=== PATIENT | male | born 1935 | race Caucasian/White ===

== ENCOUNTER 2016-03-27 07:14 | Outpatient (CLI) | payer MEDICARE, BC ==
[~2016-03-27] VITALS: Ht 195.6 cm; Wt 113.6 kg
[~2016-03-27 07:14] MED LIST: /DULO30CA OR; /TAMS4CA PO; ALEVE PM OR; ALFU10TA PO; ALLO100T PO; ASPI81TA45 OR; ASPI81TA85 PO; ATEN50TA2 OR; B COCAP5 OR; BACT800T5 PO; COLA100C2 OR; DULO30CA PO; FINA5TAB2 PO; FOLI1TAB86 PO; FOLI5INJ2 PO; GABA300C2 PO; GABA600T3 OR; LISI30TA3 OR; MELA1LIQ2 PO; METF500T4 OR; METH1INJ IM; METH2.5T PO; METH2.5TA PO; METO100T PO; METO100T3 PO; MEXI150C PO; PERC5TAB6 PO; QUET5TAB PO; SIMV20TA2 OR; SLOWTAB2 PO; TOPR100T PO; VITA-113 OR; VITA100072 PO; XARE10TA PO; immune globulin IV; stool softener OR
[2016-03-27] MEDS ORDERED: IMMUNE GLOBULIN 10% 40 GM in APPROPRIATE DILUENT 1 EA IV ONE (08:00)
== END 2016-03-27 10:10 | disposition home or self-care (01) ==
LOC: M INFU 07:14
PROVIDERS: ATTEND Psychiatry & Neurology Neurology
DX: G61.81 Chronic inflammatory demyelinating polyneuritis (principal)
CPT/HCPCS: 96365; 96366; J1568

== ENCOUNTER 2016-04-30 07:26 | Outpatient (CLI) | payer MEDICARE, BC ==
[~2016-04-30] VITALS: Ht 195.6 cm; Wt 113.6 kg
[~2016-04-30 07:26] MED LIST changes: +IMMUNE GLOBULIN 10% 40 GM in APPROPRIATE DILUENT 1 EA IV ONE
== END 2016-04-30 10:30 | disposition home or self-care (01) ==
LOC: M INFU 07:26
PROVIDERS: ATTEND Psychiatry & Neurology Neurology
DX: G61.81 Chronic inflammatory demyelinating polyneuritis (principal)
CPT/HCPCS: 96365; 96366; J1568

== ENCOUNTER 2016-05-28 07:10 | Outpatient (CLI) | payer MEDICARE, BC ==
[~2016-05-28] VITALS: Ht 195.6 cm; Wt 113.0 kg
== END 2016-05-28 10:30 | disposition home or self-care (01) ==
LOC: M INFU 07:10
PROVIDERS: ATTEND Psychiatry & Neurology Neurology
DX: G61.81 Chronic inflammatory demyelinating polyneuritis (principal)
CPT/HCPCS: 96365; 96366; J1568

== ENCOUNTER 2016-06-25 07:18 | Outpatient (CLI) | payer MEDICARE, BC ==
[~2016-06-25] VITALS: Ht 195.6 cm; Wt 113.6 kg
[~2016-06-25 07:18] MED LIST changes: -IMMUNE GLOBULIN 10% 40 GM in APPROPRIATE DILUENT 1 EA IV ONE
[2016-06-25] MEDS ORDERED: IMMUNE GLOBULIN 10% 40 GM in APPROPRIATE DILUENT 1 EA IV ONE (07:45)
[2016-06-26 14:19] LABS: PSA % FREE 14.4 % (.); PSA FREE 0.59 ng/mL; PSA TOTAL 4.1 ng/mL (0.0-4.0)
== END 2016-06-25 10:50 | disposition home or self-care (01) ==
LOC: M INFU 07:18
PROVIDERS: ATTEND Psychiatry & Neurology Neurology
DX: G61.81 Chronic inflammatory demyelinating polyneuritis (principal)
CPT/HCPCS: 36415; 84154; 96365; 96366; J1568

== ENCOUNTER → 2016-07-16 | Outpatient (CLI) | payer MEDICARE, BC ==
[2016-07-16 18:25] LABS: CALCIUM LEVEL 9.5 MG/DL (8.8-10.2); CREATININE FOR GFR 1.37 MG/DL (0.70-1.30); GLOMERULAR FILTRATION RATE 53.5 (>42); POTASSIUM SERUM 4.8 MEQ/L (3.5-5.1)
[2016-07-16 18:42] LABS: BASO % 0.4 % (0.0-1.0); EOS # 0.1 K/mm3 (0.0-0.50); EOS % 1.3 % (0.0-3.0); LARGE UNSTAINED CELL # 0.1 K/mm3 (0.0-0.4); LARGE UNSTAINED CELL % 1.6 % (0.0-4.0); LYMPH # 1.3 K/mm3 (1.5-4.5); MEAN CORPUSCULAR HEMOGLOBIN 33.6 pg (27.0-33.0); MEAN CORPUSCULAR HGB CONC 33.8 g/dl (32.0-36.5); MEAN CORPUSCULAR VOLUME 99.6 fl (80.0-96.0); MONO # 0.5 K/mm3 (0.0-0.8); MONO % 6.5 % (0.0-5.0); NEUTROPHILS # 6.2 K/mm3 (1.8-7.7); NEUTROPHILS % 74.2 % (36.0-66.0); PLATELET COUNT, AUTOMATED 238 k/mm3 (150-450); RED CELL DISTRIBUTION WIDTH 15.5 % (11.5-14.5); WHITE BLOOD COUNT 8.3 K/mm3 (4.0-10.0)
== END ==
LOC: M SMT 11:45
PROVIDERS: ATTEND Internal Medicine Cardiovascular Disease
DX: I50.42 Chronic combined systolic (congestive) and diastolic (congestive) heart failure (principal)

== ENCOUNTER 2016-07-23 07:27 | Outpatient (CLI) | payer MEDICARE, BC ==
[~2016-07-23] VITALS: Ht 195.6 cm; Wt 113.6 kg
[2016-07-23] MEDS ORDERED: IMMUNE GLOBULIN 10% 20 GM in APPROPRIATE DILUENT 1 EA IV ONE ×2 (08:00)
[2016-07-23] MEDS ORDERED: IMMUNE GLOBULIN 10% 40 GM in APPROPRIATE DILUENT 1 EA IV ONE (08:00)
== END 2016-07-23 10:20 | disposition home or self-care (01) ==
LOC: M INFU 07:27
PROVIDERS: ATTEND Psychiatry & Neurology Neurology
DX: G61.81 Chronic inflammatory demyelinating polyneuritis (principal)
CPT/HCPCS: 96365; 96366; J1568

== ENCOUNTER → 2016-07-24 | Outpatient (REF) | payer MEDICARE, BC | LOC: M SMT 16:43 | PROVIDERS: ATTEND Urology | DX: N40.1 Benign prostatic hyperplasia with lower urinary tract symptoms (principal) ==

== ENCOUNTER 2016-08-27 07:20 | Outpatient (CLI) | payer MEDICARE, BC ==
[~2016-08-27] VITALS: Ht 195.6 cm; Wt 113.6 kg
[2016-08-27] MEDS ORDERED: IMMUNE GLOBULIN 10% 20GM 200ML 40 GM in APPROPRIATE DILUENT 1 EA IV ONE (08:30)
== END 2016-08-27 11:15 | disposition home or self-care (01) ==
LOC: M INFU 07:20
PROVIDERS: ATTEND Psychiatry & Neurology Neurology
DX: G61.81 Chronic inflammatory demyelinating polyneuritis (principal); M10.9 Gout, unspecified; E11.9 Type 2 diabetes mellitus without complications; N40.0 Benign prostatic hyperplasia without lower urinary tract symptoms; Z87.891 Personal history of nicotine dependence; Z79.899 Other long term (current) drug therapy; Z79.84 Long term (current) use of oral hypoglycemic drugs; Z88.1 Allergy status to other antibiotic agents; Z95.0 Presence of cardiac pacemaker
CPT/HCPCS: 96365; 96366; J1569

== ENCOUNTER 2016-10-01 07:25 | Outpatient (CLI) | payer MEDICARE, BC ==
[~2016-10-01 07:25] MED LIST changes: +IMMUNE GLOBULIN 10% 20GM 200ML 40 GM in APPROPRIATE DILUENT 1 EA IV ONE; -METO100T PO; +METO100T5 PO; +PERC5TAB12 PO; -PERC5TAB6 PO
== END 2016-10-01 11:30 | disposition home or self-care (01) ==
LOC: M INFU 07:25
PROVIDERS: ATTEND Psychiatry & Neurology Neurology
DX: G61.81 Chronic inflammatory demyelinating polyneuritis (principal); Z79.899 Other long term (current) drug therapy; Z79.84 Long term (current) use of oral hypoglycemic drugs; Z88.1 Allergy status to other antibiotic agents; E78.5 Hyperlipidemia, unspecified; E07.9 Disorder of thyroid, unspecified; N40.1 Benign prostatic hyperplasia with lower urinary tract symptoms; E11.9 Type 2 diabetes mellitus without complications; Z87.39 Personal history of other diseases of the musculoskeletal system and connective tissue; Z72.0 Tobacco use
CPT/HCPCS: 96365; 96366; J1569

== ENCOUNTER 2016-10-29 07:24 | Outpatient (CLI) | payer MEDICARE, BC ==
[~2016-10-29] VITALS: Ht 195.6 cm; Wt 113.6 kg
[~2016-10-29 07:24] MED LIST changes: -IMMUNE GLOBULIN 10% 20GM 200ML 40 GM in APPROPRIATE DILUENT 1 EA IV ONE
[2016-10-29] MEDS ORDERED: IMMUNE GLOBULIN 10% 20GM 200ML 40 GM in APPROPRIATE DILUENT 1 EA IV ONE (07:45)
== END 2016-10-29 10:25 | disposition home or self-care (01) ==
LOC: M INFU 07:24
PROVIDERS: ATTEND Psychiatry & Neurology Neurology
DX: G61.81 Chronic inflammatory demyelinating polyneuritis (principal); I10 Essential (primary) hypertension; E78.00 Pure hypercholesterolemia, unspecified; E11.9 Type 2 diabetes mellitus without complications; R42 Dizziness and giddiness; M10.9 Gout, unspecified; N40.0 Benign prostatic hyperplasia without lower urinary tract symptoms; Z95.0 Presence of cardiac pacemaker; Z87.891 Personal history of nicotine dependence; Z79.84 Long term (current) use of oral hypoglycemic drugs; Z79.899 Other long term (current) drug therapy
CPT/HCPCS: 96365; 96366; J1569

== ENCOUNTER 2016-11-27 07:36 | Outpatient (CLI) | payer MEDICARE, BC ==
[~2016-11-27] VITALS: Ht 195.6 cm; Wt 113.6 kg
[2016-11-27] MEDS ORDERED: IMMUNE GLOBULIN 10% 20GM 200ML 40 GM in APPROPRIATE DILUENT 1 EA IV ONE (08:00)
== END 2016-11-27 10:40 | disposition home or self-care (01) ==
LOC: M INFU 07:36
PROVIDERS: ATTEND Psychiatry & Neurology Neurology
DX: G61.81 Chronic inflammatory demyelinating polyneuritis (principal); I10 Essential (primary) hypertension; E78.00 Pure hypercholesterolemia, unspecified; E11.9 Type 2 diabetes mellitus without complications; Z87.39 Personal history of other diseases of the musculoskeletal system and connective tissue; Z95.0 Presence of cardiac pacemaker; Z79.84 Long term (current) use of oral hypoglycemic drugs; Z79.899 Other long term (current) drug therapy; Z88.1 Allergy status to other antibiotic agents
CPT/HCPCS: 96365; 96366; J1569

== ENCOUNTER → 2016-11-28 | Outpatient (CLI) | payer MEDICARE, BC ==
--- NOTE | 2016-11-28 14:30 | REP ---
CT Head without contrast HISTORY: Cognitive impairment COMPARISON: None Areas of decreased attenuation are present in the periventricular white matter. This represents small-vessel ischemic disease. There is no intraparenchymal hemorrhage, acute infarct, mass or midline shift. The ventricular system and cortical sulci as well as subarachnoid space in the posterior fossa are dilated consistent with mild volume loss. There is no extra cerebral collection. There is no fracture. The visualized sinuses are clear. IMPRESSION: 1. Small vessel ischemic disease. 2. Mild volume loss. Signed by Mono Johnson MD 11/28/2016 02:22 P
== END ==
LOC: M RAD 13:25
PROVIDERS: ATTEND Psychiatry & Neurology Neurology
DX: G31.84 Mild cognitive impairment of uncertain or unknown etiology (principal)

== ENCOUNTER 2016-12-24 07:30 | Outpatient (CLI) | payer MEDICARE, BC ==
[~2016-12-24] VITALS: Ht 195.6 cm; Wt 113.6 kg
[2016-12-24] MEDS ORDERED: IMMUNE GLOBULIN 10% 20GM 200ML 40 GM in APPROPRIATE DILUENT 1 EA IV ONE (08:00)
== END 2016-12-24 10:25 | disposition home or self-care (01) ==
LOC: M INFU 07:30
PROVIDERS: ATTEND Psychiatry & Neurology Neurology
DX: G61.81 Chronic inflammatory demyelinating polyneuritis (principal); E11.9 Type 2 diabetes mellitus without complications; E78.5 Hyperlipidemia, unspecified; N40.0 Benign prostatic hyperplasia without lower urinary tract symptoms; Z79.84 Long term (current) use of oral hypoglycemic drugs; Z79.899 Other long term (current) drug therapy; Z88.1 Allergy status to other antibiotic agents; Z95.0 Presence of cardiac pacemaker
CPT/HCPCS: 96365; 96366; J1569

== ENCOUNTER 2017-02-25 07:31 | Outpatient (CLI) | payer MEDICARE, BC ==
[~2017-02-25] VITALS: Ht 193 cm; Wt 104.8 kg
[2017-02-25] MEDS ORDERED: IMMUNE GLOBULIN 10% 20GM 200ML 40 GM in APPROPRIATE DILUENT 1 EA IV ONE (08:00)
== END 2017-02-25 11:00 | disposition home or self-care (01) ==
LOC: M INFU 07:31
PROVIDERS: ATTEND Psychiatry & Neurology Neurology
DX: G61.81 Chronic inflammatory demyelinating polyneuritis (principal); I10 Essential (primary) hypertension; E78.00 Pure hypercholesterolemia, unspecified; E11.9 Type 2 diabetes mellitus without complications; M10.9 Gout, unspecified; Z95.0 Presence of cardiac pacemaker; Z87.891 Personal history of nicotine dependence; Z79.899 Other long term (current) drug therapy; Z88.1 Allergy status to other antibiotic agents
CPT/HCPCS: 96365; 96366; J1569

== ENCOUNTER → 2017-03-08 | Outpatient (CLI) | payer MEDICARE, BC ==
[2017-03-08 11:54] LABS: MEAN CORPUSCULAR HEMOGLOBIN 32.7 pg (27.0-33.0); MEAN CORPUSCULAR VOLUME 96.2 fl (80.0-96.0); PLATELET COUNT, AUTOMATED 201 10^3/uL (150-450); RED CELL DISTRIBUTION WIDTH 14.1 % (11.5-14.5); WHITE BLOOD COUNT 8.8 10^3/uL (4.0-10.0)
[2017-03-08 12:22] LABS: CALCIUM LEVEL 9.8 MG/DL (8.8-10.2); CREATININE FOR GFR 1.4 MG/DL (0.70-1.30)
== END ==
LOC: M SMT 10:29
PROVIDERS: ATTEND Internal Medicine Interventional Cardiology
DX: I47.2 Ventricular tachycardia (principal)

== ENCOUNTER 2017-03-26 07:41 | Outpatient (CLI) | payer MEDICARE, BC ==
[2017-03-26] MEDS: IMMUNE GLOBULIN 10% 20GM 200ML 40 GM in APPROPRIATE DILUENT 1 EA IV (08:03)
== END 2017-03-26 11:00 | disposition home or self-care (01) ==
LOC: M INFU 07:41
DX: G61.81 Chronic inflammatory demyelinating polyneuritis (principal)
CPT/HCPCS: 96365

== ENCOUNTER 2017-04-29 08:30 | Outpatient (CLI) | payer MEDICARE, BC ==
[2017-04-29] MEDS: IMMUNE GLOBULIN 10% 20GM 200ML 40 GM in APPROPRIATE DILUENT 1 EA IV (09:12)
[2017-04-29 10:06] LABS: ALBUMIN 3.4 GM/DL (3.2-5.2); ALBUMIN/GLOBULIN RATIO 1.13 (1.00-1.93); ALKALINE PHOSPHATASE 91 U/L (45-117); ALT/SGPT 11 U/L (12-78); ANION GAP 10 MEQ/L (8-16); AST/SGOT 17 U/L (7-37); BILIRUBIN,TOTAL 0.5 MG/DL (0.2-1.0); BLOOD UREA NITROGEN 20 MG/DL (7-18); CALCIUM LEVEL 9.2 MG/DL (8.8-10.2); CARBON DIOXIDE LEVEL 28 MEQ/L (21-32); CHLORIDE LEVEL 104 MEQ/L (98-107); CREATININE FOR GFR 1.36 MG/DL (0.70-1.30); GLOMERULAR FILTRATION RATE 53.8 (>42); GLUCOSE, FASTING 117 MG/DL (70-100); POTASSIUM SERUM 3.9 MEQ/L (3.5-5.1); SODIUM LEVEL 142 MEQ/L (136-145); TOTAL PROTEIN 6.4 GM/DL (6.4-8.2)
== END 2017-04-29 12:00 | disposition home or self-care (01) ==
LOC: M INFU 08:30
DX: G61.81 Chronic inflammatory demyelinating polyneuritis (principal); I47.2 Ventricular tachycardia; E78.2 Mixed hyperlipidemia; Z79.899 Other long term (current) drug therapy; Z88.2 Allergy status to sulfonamides
CPT/HCPCS: J1569

== ENCOUNTER 2017-05-27 07:36 | Outpatient (CLI) | payer MEDICARE, BC ==
[2017-05-27] MEDS: IMMUNE GLOBULIN 10% 20GM 200ML 40 GM in APPROPRIATE DILUENT 1 EA IV (08:09)
== END 2017-05-27 09:45 | disposition home or self-care (01) ==
LOC: M INFU 07:36
DX: G61.81 Chronic inflammatory demyelinating polyneuritis (principal); E11.9 Type 2 diabetes mellitus without complications; I10 Essential (primary) hypertension; E78.5 Hyperlipidemia, unspecified; Z79.899 Other long term (current) drug therapy; Z88.2 Allergy status to sulfonamides; Z88.1 Allergy status to other antibiotic agents; Z87.39 Personal history of other diseases of the musculoskeletal system and connective tissue; Z95.0 Presence of cardiac pacemaker; Z87.891 Personal history of nicotine dependence
CPT/HCPCS: J1569

== ENCOUNTER → 2017-06-17 | Outpatient (CLI) | payer MEDICARE, BC ==
[2017-06-17 18:11] LABS: ALBUMIN 3.5 GM/DL (3.2-5.2); ALBUMIN/GLOBULIN RATIO 1.09 (1.00-1.93); ALKALINE PHOSPHATASE 106 U/L (45-117); ALT/SGPT 47 U/L (12-78); ANION GAP 8 MEQ/L (8-16); AST/SGOT 31 U/L (7-37); BILIRUBIN,TOTAL 0.4 MG/DL (0.2-1.0); BLOOD UREA NITROGEN 34 MG/DL (7-18); CALCIUM LEVEL 9.2 MG/DL (8.8-10.2); CARBON DIOXIDE LEVEL 29 MEQ/L (21-32); CHLORIDE LEVEL 107 MEQ/L (98-107); CREATININE FOR GFR 1.77 MG/DL (0.70-1.30); GLOMERULAR FILTRATION RATE 39.7 (>42); GLUCOSE, FASTING 106 MG/DL (70-100); MAGNESIUM LEVEL 2.1 MG/DL (1.8-2.4); POTASSIUM SERUM 4.1 MEQ/L (3.5-5.1); SODIUM LEVEL 144 MEQ/L (136-145); TOTAL PROTEIN 6.7 GM/DL (6.4-8.2)
[2017-06-17 18:28] LABS: BASO # 0.1 10^3/uL (0.0-0.2); BASO % 0.6 % (0.0-1.0); EOS # 0.4 10^3/uL (0.0-0.50); EOS % 4.2 % (0.0-3.0); HEMATOCRIT 35.8 % (42.0-52.0); HEMOGLOBIN 11.6 g/dl (14.0-18.0); IMMATURE GRANULOCYTE % 0.6 % (0-3.0); LYMPH % 12.5 % (24.0-44.0); MEAN CORPUSCULAR HEMOGLOBIN 32.7 pg (27.0-33.0); MEAN CORPUSCULAR HGB CONC 32.4 g/dl (32.0-36.5); MEAN CORPUSCULAR VOLUME 100.8 fl (80.0-96.0); MONO # 0.6 10^3/uL (0.0-0.8); MONO % 7.5 % (0.0-5.0); NEUTROPHILS # 6.2 10^3/uL (1.8-7.7); NEUTROPHILS % 74.6 % (36.0-66.0); PLATELET COUNT, AUTOMATED 239 10^3/uL (150-450); RED BLOOD COUNT 3.55 10^6/uL (4.30-6.10); RED CELL DISTRIBUTION WIDTH 15.5 % (11.5-14.5); WHITE BLOOD COUNT 8.4 10^3/uL (4.0-10.0)
== END ==
LOC: M SMT 13:17
DX: I50.42 Chronic combined systolic (congestive) and diastolic (congestive) heart failure (principal); Z95.0 Presence of cardiac pacemaker
CPT/HCPCS: 83735

== ENCOUNTER 2017-06-27 07:59 | Outpatient (CLI) | payer MEDICARE, BC ==
[2017-06-27] MEDS: IMMUNE GLOBULIN 10% 20GM 200ML 40 GM in APPROPRIATE DILUENT 1 EA IV (08:05)
== END 2017-06-27 13:30 | disposition home or self-care (01) ==
LOC: M INFU 07:59
DX: G61.81 Chronic inflammatory demyelinating polyneuritis (principal); Z95.0 Presence of cardiac pacemaker; Z88.2 Allergy status to sulfonamides; Z79.84 Long term (current) use of oral hypoglycemic drugs; Z79.899 Other long term (current) drug therapy
CPT/HCPCS: J1569

== ENCOUNTER 2017-07-25 08:58 | Outpatient (CLI) | payer MEDICARE, BC ==
[2017-07-25] MEDS: IMMUNE GLOBULIN 10% 20GM 200ML 40 GM in APPROPRIATE DILUENT 1 EA IV (09:24)
== END 2017-07-25 13:00 | disposition home or self-care (01) ==
LOC: M INFU 08:58
DX: G61.81 Chronic inflammatory demyelinating polyneuritis (principal); Z79.899 Other long term (current) drug therapy; Z88.1 Allergy status to other antibiotic agents; Z87.39 Personal history of other diseases of the musculoskeletal system and connective tissue; Z87.891 Personal history of nicotine dependence; Z95.0 Presence of cardiac pacemaker
CPT/HCPCS: J1569

== ENCOUNTER 2017-08-29 08:03 | Outpatient (CLI) | payer MEDICARE, BC ==
[2017-08-29] MEDS: IMMUNE GLOBULIN 10% 20GM 200ML 60 GM in APPROPRIATE DILUENT 1 EA IV (09:14)
== END 2017-08-29 12:45 | disposition home or self-care (01) ==
LOC: M INFU 08:03
DX: G61.81 Chronic inflammatory demyelinating polyneuritis (principal); M10.9 Gout, unspecified; Z79.899 Other long term (current) drug therapy; Z88.8 Allergy status to other drugs, medicaments and biological substances; Z95.0 Presence of cardiac pacemaker; Z87.891 Personal history of nicotine dependence
CPT/HCPCS: J1569

== ENCOUNTER 2017-10-09 12:21 | Outpatient (CLI) | payer MEDICARE, BC ==
[2017-10-09] MEDS: IMMUNE GLOBULIN 10% 20GM 200ML 60 GM in APPROPRIATE DILUENT 1 EA IV (12:57)
== END 2017-10-09 16:40 | disposition home or self-care (01) ==
LOC: M INFU 12:21
DX: G61.81 Chronic inflammatory demyelinating polyneuritis (principal); E11.9 Type 2 diabetes mellitus without complications; I10 Essential (primary) hypertension; E78.00 Pure hypercholesterolemia, unspecified; Z79.899 Other long term (current) drug therapy; Z88.8 Allergy status to other drugs, medicaments and biological substances; Z87.891 Personal history of nicotine dependence; Z95.0 Presence of cardiac pacemaker; Z87.39 Personal history of other diseases of the musculoskeletal system and connective tissue
CPT/HCPCS: J1569

== ENCOUNTER 2017-11-06 12:25 | Outpatient (CLI) | payer MEDICARE, BC ==
[2017-11-06] MEDS: IMMUNE GLOBULIN 10% 20GM 200ML 60 GM in APPROPRIATE DILUENT 1 EA IV (13:05)
== END 2017-11-06 16:40 | disposition home or self-care (01) ==
LOC: M INFU 12:25
DX: G61.81 Chronic inflammatory demyelinating polyneuritis (principal); E11.9 Type 2 diabetes mellitus without complications; M10.9 Gout, unspecified; N42.9 Disorder of prostate, unspecified; Z79.84 Long term (current) use of oral hypoglycemic drugs; Z79.899 Other long term (current) drug therapy; Z88.8 Allergy status to other drugs, medicaments and biological substances; Z87.891 Personal history of nicotine dependence; Z95.0 Presence of cardiac pacemaker
CPT/HCPCS: J1569

== ENCOUNTER 2017-12-04 11:56 | Outpatient (CLI) | payer MEDICARE, BC ==
[2017-12-04] MEDS ORDERED: IMMUNE GLOBULIN 10% 20GM 200ML 20 GM in APPROPRIATE DILUENT 1 EA IV ×2 (12:15→13:00)
== END 2017-12-04 16:05 | disposition home or self-care (01) ==
LOC: M INFU 11:56
DX: G61.81 Chronic inflammatory demyelinating polyneuritis (principal); E78.5 Hyperlipidemia, unspecified; N40.0 Benign prostatic hyperplasia without lower urinary tract symptoms; Z79.899 Other long term (current) drug therapy; Z88.2 Allergy status to sulfonamides; Z88.8 Allergy status to other drugs, medicaments and biological substances; Z95.0 Presence of cardiac pacemaker; Z87.891 Personal history of nicotine dependence
CPT/HCPCS: 96365

== ENCOUNTER 2018-01-06 12:41 | Outpatient (CLI) | payer MEDICARE, BC ==
[2018-01-06] MEDS: IMMUNE GLOBULIN 10% 20GM 200ML 60 GM in APPROPRIATE DILUENT 1 EA IV (13:20)
== END 2018-01-06 16:50 | disposition home or self-care (01) ==
LOC: M INFU 12:41
DX: G61.81 Chronic inflammatory demyelinating polyneuritis (principal)
CPT/HCPCS: J1569

== ENCOUNTER 2018-02-03 12:25 | Outpatient (CLI) | payer MEDICARE, BC ==
[2018-02-03] MEDS ORDERED: IMMUNE GLOBULIN 10% 20GM 200ML 60 GM in APPROPRIATE DILUENT 1 EA IV (13:00)
[2018-02-03] MEDS: IMMUNE GLOBULIN 10% 20GM 200ML 60 GM in APPROPRIATE DILUENT 1 EA IV (13:04)
== END 2018-02-03 16:45 | disposition home or self-care (01) ==
LOC: M INFU 12:25
DX: G61.81 Chronic inflammatory demyelinating polyneuritis (principal)
CPT/HCPCS: J1569

== ENCOUNTER 2018-03-03 12:42 | Outpatient (CLI) | payer MEDICARE, BC ==
[2018-03-03] MEDS: IMMUNE GLOBULIN 10% 40 GM in APPROPRIATE DILUENT 1 EA IV (13:09)
[2018-03-03] MEDS: IMMUNE GLOBULIN 10% 20 GM in APPROPRIATE DILUENT 1 EA IV (13:10)
== END 2018-03-03 16:30 | disposition home or self-care (01) ==
LOC: M INFU 12:42
DX: G61.81 Chronic inflammatory demyelinating polyneuritis (principal)
CPT/HCPCS: J1459

== ENCOUNTER 2018-03-31 12:34 | Outpatient (CLI) | payer MEDICARE, BC ==
[2018-03-31] VITALS (7 sets, daily range): BP systolic 110–144; BP diastolic 57–76
[~2018-03-31] VITALS: Ht 195.6 cm; Wt 113.6 kg
[~2018-03-31 12:34] MED LIST changes: +IMMUNE GLOBULIN 10% 20 GM in APPROPRIATE DILUENT 1 EA IV ONE; +IMMUNE GLOBULIN 10% 40 GM in APPROPRIATE DILUENT 1 EA IV ONE; +METH2.5T48 PO; -METH2.5TA PO; -TOPR100T PO; +TOPR100T13 PO
[2018-03-31] MEDS ORDERED: IMMUNE GLOBULIN 10% 60 GM in APPROPRIATE DILUENT 1 EA IV ONE (13:30)
[2018-03-31] MEDS ORDERED: IMMUNE GLOBULIN 10% 40 GM in APPROPRIATE DILUENT 1 EA IV ONE (14:00)
== END 2018-03-31 16:55 | disposition home or self-care (01) ==
LOC: M INFU 12:34
PROVIDERS: ATTEND Psychiatry & Neurology Neurology
DX: G61.81 Chronic inflammatory demyelinating polyneuritis (principal)
CPT/HCPCS: 96365; 96366; J1459

== ENCOUNTER 2018-04-28 12:55 | Outpatient (CLI) | payer MEDICARE, BC ==
[~2018-04-28] VITALS: Ht 195.6 cm; Wt 113.6 kg
[2018-04-28] VITALS (7 sets, daily range): BP systolic 101–121; BP diastolic 61–70
[~2018-04-28 12:55] MED LIST changes: -IMMUNE GLOBULIN 10% 20 GM in APPROPRIATE DILUENT 1 EA IV ONE; -IMMUNE GLOBULIN 10% 40 GM in APPROPRIATE DILUENT 1 EA IV ONE
[2018-04-28] MEDS ORDERED: IMMUNE GLOBULIN 10% 40 GM in APPROPRIATE DILUENT 1 EA IV ONE (13:30)
[2018-04-28] MEDS ORDERED: IMMUNE GLOBULIN 10% 20 GM in APPROPRIATE DILUENT 1 EA IV ONE (13:30)
== END 2018-04-28 17:45 | disposition home or self-care (01) ==
LOC: M INFU 12:55
PROVIDERS: ATTEND Psychiatry & Neurology Neurology
DX: G61.81 Chronic inflammatory demyelinating polyneuritis (principal)
CPT/HCPCS: 96365; 96366; J1459

== ENCOUNTER 2018-05-26 13:15 | Outpatient (CLI) | payer MEDICARE, BC ==
[~2018-05-26] VITALS: Ht 195.6 cm; Wt 113.0 kg
[2018-05-26] VITALS (8 sets, daily range): BP systolic 116–136; BP diastolic 58–79
[~2018-05-26 13:15] MED LIST changes: +IMMUNE GLOBULIN 10% 20 GM in APPROPRIATE DILUENT 1 EA IV ONE; +IMMUNE GLOBULIN 10% 40 GM in APPROPRIATE DILUENT 1 EA IV ONE
== END 2018-05-26 17:15 | disposition home or self-care (01) ==
LOC: M INFU 13:15
PROVIDERS: ATTEND Psychiatry & Neurology Neurology
DX: G61.81 Chronic inflammatory demyelinating polyneuritis (principal)
CPT/HCPCS: 96365; 96366; J1459

== ENCOUNTER 2018-06-23 10:08 | Outpatient (CLI) | payer MEDICARE, BC ==
[~2018-06-23] VITALS: Ht 170.2 cm; Wt 113.0 kg
[2018-06-23] VITALS (7 sets, daily range): BP systolic 100–121; BP diastolic 59–71
[~2018-06-23 10:08] MED LIST changes: -/DULO30CA OR; -/TAMS4CA PO; +CYMB1CAP5 OR; -DULO30CA PO; +DULO30CA9 PO; +FLOM0.4C39 PO; -IMMUNE GLOBULIN 10% 20 GM in APPROPRIATE DILUENT 1 EA IV ONE; -IMMUNE GLOBULIN 10% 40 GM in APPROPRIATE DILUENT 1 EA IV ONE; +TOPR100T PO; -TOPR100T13 PO; +VITA100018 PO; -VITA100072 PO
[2018-06-23] MEDS ORDERED: IMMUNE GLOBULIN 10% 20 GM in APPROPRIATE DILUENT 1 EA IV ONE (11:00)
[2018-06-23] MEDS ORDERED: IMMUNE GLOBULIN 10% 40 GM in APPROPRIATE DILUENT 1 EA IV ONE (11:00)
== END 2018-06-23 14:30 | disposition home or self-care (01) ==
LOC: M INFU 10:08
PROVIDERS: ATTEND Psychiatry & Neurology Neurology
DX: G61.81 Chronic inflammatory demyelinating polyneuritis (principal); Z88.2 Allergy status to sulfonamides
CPT/HCPCS: 96365; 96366; J1459

== ENCOUNTER 2018-07-31 11:58 | Outpatient (CLI) | payer MEDICARE, BC ==
[~2018-07-31] VITALS: Ht 170.2 cm; Wt 113.0 kg
[2018-07-31] VITALS (7 sets, daily range): BP systolic 98–116; BP diastolic 53–59
[2018-07-31] MEDS ORDERED: IMMUNE GLOBULIN 10% 20 GM in APPROPRIATE DILUENT 1 EA IV ONE (12:30)
[2018-07-31] MEDS ORDERED: IMMUNE GLOBULIN 10% 40 GM in APPROPRIATE DILUENT 1 EA IV ONE (12:30)
== END 2018-07-31 16:20 | disposition home or self-care (01) ==
LOC: M INFU 11:58
PROVIDERS: ATTEND Psychiatry & Neurology Neurology
DX: G61.81 Chronic inflammatory demyelinating polyneuritis (principal)
CPT/HCPCS: 96365; 96366; J1459

== ENCOUNTER 2018-09-29 12:03 | Outpatient (CLI) | payer MEDICARE, BC ==
[~2018-09-29] VITALS: Ht 167.6 cm; Wt 62.7 kg
[~2018-09-29 12:03] MED LIST changes: +IMMUNE GLOBULIN 10% 60 GM in APPROPRIATE DILUENT 1 EA IV ONE
[2018-09-29 12:05] VITALS: BP 111/59
[2018-09-29] MEDS ORDERED: IMMUNE GLOBULIN 10% 20 GM in APPROPRIATE DILUENT 1 EA IV ONE (12:30)
[2018-09-29] MEDS ORDERED: IMMUNE GLOBULIN 10% 40 GM in APPROPRIATE DILUENT 1 EA IV ONE (12:30)
[2018-09-29 13:00] VITALS: BP 109/57
[2018-09-29 13:30] VITALS: BP 102/56
[2018-09-29 14:30] VITALS: BP 97/57
[2018-09-29 15:30] VITALS: BP 94/56
[2018-09-29 16:20] VITALS: BP 90/53
== END 2018-09-29 16:20 | disposition home or self-care (01) ==
LOC: M INFU 12:03
PROVIDERS: ATTEND Psychiatry & Neurology Neurology
DX: G61.81 Chronic inflammatory demyelinating polyneuritis (principal)
CPT/HCPCS: 96365; 96366; J1459

== ENCOUNTER 2018-10-27 13:32 | Outpatient (CLI) | payer MEDICARE, BC ==
[~2018-10-27] VITALS: Ht 193 cm; Wt 115.0 kg
[2018-10-27 13:30] VITALS: BP 108/67
[~2018-10-27 13:32] MED LIST changes: -IMMUNE GLOBULIN 10% 60 GM in APPROPRIATE DILUENT 1 EA IV ONE
[2018-10-27] MEDS ORDERED: IMMUNE GLOBULIN 10% 40 GM in APPROPRIATE DILUENT 1 EA IV ONE (14:00)
[2018-10-27] MEDS ORDERED: IMMUNE GLOBULIN 10% 20 GM in APPROPRIATE DILUENT 1 EA IV ONE (14:00)
[2018-10-27 14:35] VITALS: BP 109/59
[2018-10-27 14:38] LABS: ALBUMIN 3.2 GM/DL (3.2-5.2); BILIRUBIN,TOTAL 0.3 MG/DL (0.2-1.0); CALCIUM LEVEL 9.7 MG/DL (8.8-10.2); CREATININE FOR GFR 1.48 MG/DL (0.70-1.30); GLOMERULAR FILTRATION RATE 48.7 (>35); MAGNESIUM LEVEL 2.5 MG/DL (1.8-2.4); POTASSIUM SERUM 3.7 MEQ/L (3.5-5.1); TOTAL PROTEIN 6.7 GM/DL (6.4-8.2)
[2018-10-27 15:05] VITALS: BP 96/57
[2018-10-27 15:35] VITALS: BP 98/62
[2018-10-27 16:35] VITALS: BP 100/58
[2018-10-27 17:20] VITALS: BP 109/65
== END 2018-10-27 17:40 | disposition home or self-care (01) ==
LOC: M INFU 13:32
PROVIDERS: ATTEND Psychiatry & Neurology Neurology
DX: G61.81 Chronic inflammatory demyelinating polyneuritis (principal)
CPT/HCPCS: 36592; 80053; 83735; 96365; 96366; J1459

== ENCOUNTER 2018-11-26 12:53 | Outpatient (CLI) | payer MEDICARE, BC ==
[~2018-11-26] VITALS: Ht 193 cm; Wt 115.0 kg
[2018-11-26 13:00] VITALS: BP 98/51
[2018-11-26] MEDS ORDERED: IMMUNE GLOBULIN 10% 40 GM in APPROPRIATE DILUENT 1 EA IV ONE (13:30)
[2018-11-26] MEDS ORDERED: IMMUNE GLOBULIN 10% 20 GM in APPROPRIATE DILUENT 1 EA IV ONE (13:30)
[2018-11-26 13:45] VITALS: BP 99/60
[2018-11-26 14:15] VITALS: BP 102/56
[2018-11-26 14:45] VITALS: BP 103/62
[2018-11-26 15:15] VITALS: BP 97/53
[2018-11-26 16:44] VITALS: BP 96/51
== END 2018-11-26 16:45 | disposition home or self-care (01) ==
LOC: M INFU 12:53
PROVIDERS: ATTEND Psychiatry & Neurology Neurology
DX: G61.81 Chronic inflammatory demyelinating polyneuritis (principal)
CPT/HCPCS: 96365; 96366; J1459

== ENCOUNTER 2018-12-24 12:38 | Outpatient (CLI) | payer MEDICARE, BC ==
[~2018-12-24] VITALS: Ht 193 cm; Wt 115.0 kg
[2018-12-24] VITALS (7 sets, daily range): BP systolic 115–134; BP diastolic 56–74
[2018-12-24] MEDS: IMMUNE GLOBULIN 10% 40 GM in IV 1 EA IV ONE (13:15)
[2018-12-24] MEDS: IMMUNE GLOBULIN 10% 20 GM in IV 1 EA IV ONE (13:16)
== END 2018-12-24 17:05 | disposition home or self-care (01) ==
LOC: M INFU 12:38
PROVIDERS: ATTEND Psychiatry & Neurology Neurology
DX: G61.81 Chronic inflammatory demyelinating polyneuritis (principal)
CPT/HCPCS: 96365; 96366; J1459

== ENCOUNTER 2019-01-28 12:40 | Outpatient (CLI) | payer MEDICARE, BC ==
[~2019-01-28] VITALS: Ht 193 cm; Wt 115.0 kg
[2019-01-28 12:45] VITALS: BP 126/76
[2019-01-28] MEDS ORDERED: IMMUNE GLOBULIN 10% 40 GM in IV 1 EA IV ONE (13:15)
[2019-01-28] MEDS ORDERED: IMMUNE GLOBULIN 10% 20 GM in IV 1 EA IV ONE (13:15)
[2019-01-28 14:00] VITALS: BP 124/75
[2019-01-28 14:30] VITALS: BP 107/57
[2019-01-28 15:00] VITALS: BP 113/65
[2019-01-28 16:00] VITALS: BP 115/68
[2019-01-28 17:15] VITALS: BP 110/61
== END 2019-01-28 17:15 | disposition home or self-care (01) ==
LOC: M INFU 12:40
PROVIDERS: ATTEND Psychiatry & Neurology Neurology
DX: G61.81 Chronic inflammatory demyelinating polyneuritis (principal)
CPT/HCPCS: 96365; 96366; J1459